=== PATIENT | male | born 1975 | race Two or more races ===

== ENCOUNTER 2017-05-21 15:26 | Emergency (ER) | payer OTHER ==
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
--- NOTE | 2017-05-21 17:39 | RAD ---
INDICATION: Rib pain. Evaluate for pulmonary contusion COMPARISON: CT abdomen and pelvis August 08, 2015 TECHNIQUE: Noncontrast source images were obtained from the thoracic inlet to the iliac crests. The lack of oral and intravenous contrast limits evaluation of bowel, assessment of adenopathy, and the solid viscera. Coronal and sagittal reconstructed images were acquired. CHEST FINDINGS: Neck/thyroid: The visualized neck to include the thyroid appear normal. Chest wall: There are no acute abnormalities of the bony thorax or chest wall. There is no supraclavicular, infraclavicular, or axillary lymphadenopathy. Lungs : There are no pulmonary parenchymal masses or infiltrates. The pulmonary interstitium appears normal. There are no endobronchial lesions. Cardiomediastinal structures: The heart is normal in size. There is no pericardial effusion. There is no evidence of aortic aneurysm or dissection. The pulmonary vessels appear normal. There is no mediastinal or hilar adenopathy. The esophagus appears normal. Pleura : There are no pleural-based masses or effusions. ABDOMINAL/PELVIC FINDINGS: Liver: The noncontrast CT appearance the liver is normal. Gallbladder: There are no calcified gallstones. There is no evidence of wall thickening or pericholecystic fluid. Spleen: Noncontrast CT appearance the spleen is normal. Pancreas: No focal pancreatic abnormalities on noncontrast evaluation. Adrenal glands: No adrenal mass. Kidneys: No nephrolithiasis, hydronephrosis, or renal masses on noncontrast imaging. Adenopathy: No gross adenopathy. Fluid collections: There is a midline localized fluid collection extending to near the iliac crests which may represent a significantly distended bladder. This is incompletely imaged. Vessels:The aorta and IVC appear normal GI tract: The visualized upper and lower GI tracts are normal on noncontrast imaging. Abdominal soft tissues: The extraperitoneal abdominal soft tissues appear normal.. Osseous structures: There are no acute osseous findings. IMPRESSION: POSSIBLE DISTENDED BLADDER. THIS SHOULD BE CLINICALLY ASSESSED TO DETERMINE IF THE PATIENT HAS THE URGE TO VOID AND IF A LARGE AMOUNT OF URINE IS OBTAINED POST VOIDING.
[2017-05-21 18:13] VITALS: BP 144/82
== END 2017-05-21 18:12 | disposition home or self-care (01) ==
LOC: ED 15:26
DX: S20.211A Contusion of right front wall of thorax, initial encounter (principal); Y09 Assault by unspecified means; Y92.9 Unspecified place or not applicable; F17.200 Nicotine dependence, unspecified, uncomplicated
CPT/HCPCS: 71250; 74150; 99282

== ENCOUNTER 2017-05-22 22:18 | Emergency (ER) | payer OTHER | END 2017-05-22 22:50 | disposition left against medical advice (07) | LOC: ED 22:18 | DX: R07.81 Pleurodynia (principal); Z53.21 Procedure and treatment not carried out due to patient leaving prior to being seen by health care provider ==

== ENCOUNTER 2017-11-14 23:07 | Emergency (ER) | payer OTHER ==
[2017-11-14] MEDS ORDERED: Hydrochlorothiazide TAB* 50 MG PO ONE (23:45)
[2017-11-14 23:52] LABS: ABS Basophils 0.1 10^3/ul (0-0.2); ABS Eosinophils 0.1 10^3/ul (0-0.6); ABS Lymphocytes 1.1 10^3/ul (1.0-4.8); ABS Monocytes 0.5 10^3/ul (0-0.8); ABS Neutrophils 5.2 10^3/ul (1.5-7.7); ABS Nucleated RBC 0 10^3/ul; Eosinophil % 1.3 % (0-6); Hematocrit 47 % (42-52); Hemoglobin 15.7 g/dl (14.0-18.0); Lymphocyte % 15.5 % (25-47); Mean Corpuscular HGB Conc 34 g/dl (31-36); Mean Corpuscular Hemoglobin 28 pg (27-31); Mean Corpuscular Volume 84 fL (80-94); Mean Platelet Volume 7.4 um3 (7.4-10.4); Nucleated Red Blood Cells % 0.4; Platelet Count 161 10^3/ul (150-450); Red Blood Count 5.58 10^6/ul (4.00-5.40); Red Cell Distribution Width 14 % (10.5-15); White Blood Count 6.9 10^3/ul (3.5-10.8)
[2017-11-15 00:07] LABS: EGFR Non-African American 137.8 (>60)
[2017-11-15] MEDS ORDERED: NS 0.9% 1000 ML* 1,000 ML IV ONE (00:26)
[2017-11-15] MEDS ORDERED: Iohexol 350* (CONTRAST) 500 ML MDV IV ONE (00:30)
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
[2017-11-15 01:44] VITALS: BP 0/0
--- NOTE | 2017-11-15 07:23 | RAD ---
HISTORY: left rib pain COMPARISONS: December 09, 2009 VIEWS: 3, Frontal view of the chest with frontal and oblique views of the left hemithorax FINDINGS: There is no displaced rib fracture or pneumothorax. The visualized lungs are clear. IMPRESSION: NO DISPLACED RIB FRACTURE OR PNEUMOTHORAX. R0
== END 2017-11-15 01:43 | disposition left against medical advice (07) ==
LOC: ED 23:07
DX: R07.89 Other chest pain (principal); R06.02 Shortness of breath; Z88.6 Allergy status to analgesic agent; F17.210 Nicotine dependence, cigarettes, uncomplicated
CPT/HCPCS: 36415; 80053; 83605; 84484; 85025; 85379; 93005; 99283

== ENCOUNTER → 2017-11-17 23:05 | Emergency (ER) | payer OTHER ==
[2017-11-17 23:11] VITALS: BP 116/84
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
== END | disposition left against medical advice (07) ==
LOC: ED 23:05
DX: R07.89 Other chest pain (principal); Z88.6 Allergy status to analgesic agent; F17.200 Nicotine dependence, unspecified, uncomplicated
CPT/HCPCS: 99283

== ENCOUNTER 2018-09-05 19:34 | Emergency (ER) | payer OTHER ==
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
[2018-09-05] MEDS ORDERED: Ibuprofen TAB* 800 MG PO ONE (21:03)
[2018-09-05 21:15] VITALS: BP 112/84
== END 2018-09-05 21:15 | disposition home or self-care (01) ==
LOC: ED 19:34
DX: S20.222A Contusion of left back wall of thorax, initial encounter (principal); X58.XXXA Exposure to other specified factors, initial encounter; Y92.9 Unspecified place or not applicable; Z88.6 Allergy status to analgesic agent; Z91.013 Allergy to seafood; Z91.018 Allergy to other foods; F17.200 Nicotine dependence, unspecified, uncomplicated
CPT/HCPCS: 99282

== ENCOUNTER 2018-09-14 22:49 | Emergency (ER) | payer OTHER ==
[2018-09-14 22:58] VITALS: BP 130/93
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
[2018-09-14] MEDS ORDERED: NS 0.9% 1000 ML** 1,000 ML IV ONE (23:23)
[2018-09-14] MEDS ORDERED: Ketorolac INJ* 30 MG/ML 1 ML VIAL IV PUSH ONE (23:25)
== END 2018-09-14 23:41 | disposition left against medical advice (07) ==
LOC: ED 22:49
DX: R07.81 Pleurodynia (principal); R07.89 Other chest pain; Z88.6 Allergy status to analgesic agent; Z91.013 Allergy to seafood; Z91.018 Allergy to other foods; F17.200 Nicotine dependence, unspecified, uncomplicated
CPT/HCPCS: 93005; 99283

== ENCOUNTER 2018-11-03 12:05 | Inpatient (IN) | payer MEDICAID, OTHER ==
[~2018-11-03 12:05] MED LIST: Thiamine IV 100 MG, Folic Acid IV* 1 MG, Multiple Vitamin IV ADULT* 10 ML in NS 0.9% 10... IV ONE
--- NOTE | 2018-11-03 12:55 | ED ---
Substance Abuse/Use - HPI Summary HPI Summary: 43 year old M brought to [facility] by corrections facility officer from [facility] complains of acute ETOH withdrawal since today. The patient rates the pain 0/10 in severity. Symptoms aggravated by nothing. Symptoms alleviated by nothing. Patient reports diaphoresis, hallucinations, confusion, and tachycardia. Patient states that this morning, while walking, he noticed that his hands started cramping. Patient additionally complains of shooting chest pain. Per nurse Kyung, nurse from corrections facility noticed that patient was having ETOH withdrawal while he was getting PO Ativan today. Patient states he was incarcerated 3 days ago. Reports hx GERD. Denies hx seizures. Denies previous ETOH wtihdrawal. Denies surgeries. Smokes cigarettes. Normally drinks 30 beers each day. Denies other recreational drugs. - History Of Current Complaint Chief Complaint: EDDetoxRequest Stated Complaint: ALCOHOL WITHDRAWAL PER POLICE Time Seen by Provider: 11/03/18 12:46 Hx Obtained From: Patient, Other: - nurse from corrections facility Timing Of Abuse: Recent Cessation For A Period Of - 3 days Severity Currently: None Aggravating Factor(s): Nothing Alleviating Factor(s): Nothing Associated Signs And Symptoms: Other: - diaphoresis, hallucinations, confusion, and tachycardia, chest pain - Allergies/Home Medications Allergies/Adverse Reactions: Allergies Allergy/AdvReac Type Severity Reaction Status Date / Time alprazolam [From Xanax] Allergy Hives Verified 11/03/18 12:18 aspirin Allergy Hives Verified 11/03/18 12:18 clams Allergy Hives Verified 11/03/18 12:18 fluoxetine [From Prozac] Allergy Hives Verified 11/03/18 12:18 turkey Allergy Hives Verified 11/03/18 12:18 PMH/Surg Hx/FS Hx/Imm Hx Endocrine/Hematology History: Denies: Hx Anticoagulant Therapy, Hx Blood Disorders, Hx Diabetes Cardiovascular History: Reports: Hx Hypercholesterolemia Denies: Hx Hypertension Respiratory History: Denies: Hx Asthma GI History: Reports: Hx Gastroesophageal Reflux Disease - Surgical History Surgery Procedure, Year, and Place: n/a - Immunization History Date of Tetanus Vaccine: unk Date of Influenza Vaccine: unk Infectious Disease History: No Infectious Disease History: Denies: Traveled Outside the [place] in Last 30 Days - Family History Known Family History: Negative: Cardiac Disease, Hypertension, Diabetes - Social History Alcohol Use: Daily Alcohol Amount: 2-3 bottles of 40 oz beer Hx Substance Use: No Substance Use Type: Reports: None Hx Tobacco Use: Yes Smoking Status (MU): Heavy Every Day Tobacco Smoker Review of Systems Positive: Skin Diaphoresis Positive: Chest Pain, Other - tachycardia Positive: Other - acute ETOH withdrawal, confusiopn, hallucinations All Other Systems Reviewed And Are Negative: Yes Physical Exam - Summary Physical Exam Summary: GENERAL: Patient is a well-developed and nourished M who is lying comfortable in the stretcher. Patient is not in any acute respiratory distress. Patient is tremulous HEAD AND FACE: Normocephalic EYES: PERRLA, EOMI x 2. EARS: Hearing grossly intact. MOUTH: Oropharynx within normal limits. NECK: Supple, trachea is midline, no adenopathy, no JVD, no carotid bruit. CHEST: Symmetric, no tenderness at palpation LUNGS: Clear to auscultation bilaterally. No wheezing or crackles. CVS: Mildly tachycardic, regular rhythm, S1 and S2 present, no murmurs or gallops appreciated. ABDOMEN: Soft, non-tender. Bowel sounds are normal. No abnormal abdominal pulsations. EXTREMITIES: Full ROM in all major joints, no edema, no cyanosis or clubbing. NEURO: Alert and oriented x 3. No acute neurological deficits. Speech is normal and follows commands. SKIN: Dry and warm Triage Information Reviewed: Yes Vital Signs On Initial Exam: Initial Vitals Temp Pulse Resp BP Pulse Ox 98.9 F 107 16 121/89 97 11/03/18 12:14 11/03/18 12:14 11/03/18 12:14 11/03/18 12:14 11/03/18 12:14 Vital Signs Reviewed: Yes Diagnostics - Vital Signs Vital Signs Temp Pulse Resp BP Pulse Ox 11/03/18 12:14 98.9 F 107 16 121/89 97 - Laboratory Result Diagrams: 11/04/18 04:42 11/04/18 04:42 Lab Statement: Any lab studies that have been ordered have been reviewed, and results considered in the medical decision making process. - EKG 1319 Cardiac Rate: NL - 98 BPM EKG Rhythm: Sinus Rhythm Summary of EKG Findings: Sinus rhythm at 98 BPM, normal intervals, normal axis. Re-Evaluation - Re-Evaluation First Eval Re-Evaluation Time: 13:59 Change: Worse Comment: patient is more tachycardic. HR in 150s Course/Dx - Course Course Of Treatment: 43 year old M brought to [facility] by corrections facility officer from [facility] complains of acute ETOH withdrawal since today. Patient reports diaphoresis, hallucinations, confusion, and tachycardia. Patient additionally complains of shooting chest pain. Per nurse Kyung, nurse from [facility] facility noticed that patient was having ETOH withdrawal. Patient states he was incarcerated 3 days ago. Denies previous ETOH wtihdrawal. Normally drinks 30 beers each day. PE findings: patient is tremulous and mildly tachycardic. Labs show no significant abnormalities except for Hgb 13.5 , Hct 41, absolute monos 1.0, sodium 134, chloride 100, creatinine 0.59, AST 83 , ALT 74. EKG shows sinus rhythm at 98 BPM, normal intervals, normal axis. In ED course, patient was given Ativan, Zofran, IV fluids. Case discussed with gas welding equipment mechanic, Dr. Alas, who agrees to admit patient. I discussed results with patient. The patient agrees with this plan. - Diagnoses Provider Diagnoses: Alcohol withdrawal - Physician Notifications Discussed Care Of Patient With: Eulalio Alas Time Discussed With Above Provider: 13:35 Instructed by Provider To: Other - Dr. Alas, gas welding equipment mechanic, will come to the ED to see the patient. - Critical Care Time Critical Care Time: 30-74 min Discharge - Sign-Out/Discharge Documenting (check all that apply): Patient Departure - Admit Patient Received Moderate/Deep Sedation with Procedure: No - Discharge Plan Condition: Fair Disposition: ADMITTED TO [facility] - Billing Disposition and Condition Condition: FAIR Disposition: Admitted to [facility] - Attestation Statements Document Initiated by Scribe: Yes Documenting Scribe: Lamar Lima Provider For Whom Scribe is Documenting (Include Credential): Veronica Garcia MD Scribe Attestation: Rani, Lamar Lima, scribed for Veronica Garcia MD on 11/05/18 at 0805. Scribe Documentation Reviewed: Yes Provider Attestation: The documentation as recorded by the scribeLamar accurately reflects the service I personally performed and the decisions made by me, Veronica Garcia MD Status of Scribe Document: Viewed
[2018-11-03] MEDS ORDERED: Thiamine INJ* 100 MG, Folic Acid IV* 1 MG, Multiple Vitamin IV ADULT* 10 ML in NS 0.9% ... IV ONE (12:57)
[2018-11-03] MEDS ORDERED: NS 0.9% 1000 ML** 1,000 ML IV ONE (12:58)
[2018-11-03] MEDS ORDERED: Al Hydrox/Mg Hydrox/Simet LIQ* 30 ML UDC PO ONE (12:58)
[2018-11-03] MEDS ORDERED: Lidocaine 2% VISCOUS* 15 ML UDC PO ONE (12:58)
[2018-11-03] MEDS ORDERED: Ondansetron INJ* 2 MG/ML VIAL IV ONE (12:59)
[2018-11-03] MEDS ORDERED: Lorazepam PYXIS KEY PRN ×3 (13:00→15:21)
[2018-11-03] MEDS ORDERED: LORazepam INJ* 2 MG/ML 1 ML VIAL IV PUSH ONE ×2 (13:00→13:38)
[2018-11-03] MEDS ORDERED: Lorazepam PYXIS KEY ONE (13:03)
[2018-11-03 13:46] LABS: ABS Neutrophils 5.8 10^3/ul (1.5-7.7); Eosinophil % 0.3 %; Hematocrit 41 % (42-52); Hemoglobin 13.5 g/dL (14.0-18.0); Lymphocyte % 12.6 %; Mean Corpuscular HGB Conc 33 g/dL (31-36); Mean Corpuscular Hemoglobin 29 pg (27-31); Mean Corpuscular Volume 89 fL (80-94); Mean Platelet Volume 7.4 fL (7.4-10.4); Nucleated Red Blood Cells % 0.2; Platelet Count 183 10^3/uL (150-450); Red Blood Count 4.64 10^6 /uL (4.18-5.48); Red Cell Distribution Width 14 % (10-15); White Blood Count 7.8 10^3/uL (3.5-10.8)
[2018-11-03] MEDS: Dexmedetomidine* 1,000 MCG in NS 0.9% 250 ML* 240 ML IV SCH ×3 (14:02→21:13)
--- NOTE | 2018-11-03 14:02 | HP ---
History of Present Illness - History of Present Illness Reason for Visit: Delirum Tremens History of Present Illness: 43 y/o male with no known significant PMH apart from chronic alcoholism incarcerated 3 days ago and today became tremulous, agitated and began to hallucinate. Brought to the ED at [facility] after being seen in clinic at [facility] and judged as exceeding their ability to handle this level of withdrawal with which I concur. He was evaluated by the ED and found to have no other obvious medical problem and started on benzodiazpines and Precedex. On my evaluation in ED he was receiving 2mg of ativan to total 4 at that time. Precedex order written by ED. He was agitated enough that it seemed reasonable to get control and hope to titrate precedex back off in the ICU environment as we trade for benzos. Pt is awake, agitated, verbal and aggressive in 4 point cuffs in custoday of DOC. - Past Medical History Psych: Addictions - ETOH 2-3 40 oz beers per day by one report, 30 twelve ounce beers daily by another - Past Surgical History Past Surgical History: Other - unknown - Past Family History Family History: Other - unknown - Past Social History Alcohol: Heavy Drugs: Other - unknown Lives: Other - unknown - Health Maintenance Health Maintenance: Other - unknown Review of Systems - Review of Systems Other: Unable to reliably obtain, actively hallucinating, spitting and thrashing about when seen in ED room 17 with nursing staff and DOC. - Medications/Allergies Allergies/Adverse Reactions: Allergies Allergy/AdvReac Type Severity Reaction Status Date / Time alprazolam [From Xanax] Allergy Hives Verified 11/03/18 12:18 aspirin Allergy Hives Verified 11/03/18 12:18 clams Allergy Hives Verified 11/03/18 12:18 fluoxetine [From Prozac] Allergy Hives Verified 11/03/18 12:18 turkey Allergy Hives Verified 11/03/18 12:18 Medications: Current Medications Sodium Chloride (Ns 0.9% 1000 Ml) 1,000 mls @ 1,000 mls/hr IV ED ONCE ONE Stop: 11/03/18 13:57 Last Admin: 11/03/18 13:20 Dose: 1,000 mls/hr Dexmedetomidine HCl 1,000 mcg/ (Sodium Chloride) 250 mls @ 0 mls/hr IV Q3H REJI ; Protocol Miscellaneous (Ativan Pyxis Butts) 1 ea N/A .ATIVAN IV BUTTS PRN PRN Reason: PYXIS BUTTS Exam - Exam Vital Signs: Vital Signs (72 hours) 11/03/18 11/03/18 11/03/18 12:14 13:06 13:47 Temperature 37.2 C Pulse Rate 107 Respiratory 16 16 16 Rate Blood Pressure 121/89 (mmHg) O2 Sat by Pulse 97 Oximetry General: Severe distress HEENT: PERRLA, EOMI, Mucous membr. moist/pink Lungs: Clear to auscultation Cardiovascular: Other - too active to appreciate reliably Abdomen: Other - too agitated to appropriately examine Extremities: No clubbing, No cyanosis, No edema Skin: No rashes, No breakdown Neurological: Strength at 5/5 X4 ext, Other Psych/Mental Status: Other - hallucinating, acutely agitated Assessment/Plan - Assessment/Plan Assessment: 43 y/o male with limited medical history presents with clinical scenario most consistent with DTs. No evidence of neurological focality. No evidence of infection. Certainly no meningismus. Vital signs stable and consistent with adrenergic storm while respiratory status is excellent and laboratory evaluations suggest only the current diagnosis. Plan: Delirium Tremens - benzodiazepines and precedex. Will add Neurolept if necessary. Chronic alcoholism - banana bag, hydration, cessation counseling when able
[2018-11-03 14:08] LABS: ALT 74 U/L (7-52); AST 83 U/L (13-39); Acetaminophen < 15 mcg/mL; Albumin 4.1 g/dL (3.2-5.2); Albumin/Globulin Ratio 1.1 (1-3); Alcohol < 10 mg/dL (<10); Alkaline Phosphatase 87 U/L (34-104); Anion Gap 8 mmol/L (2-11); BUN/Creatinine Ratio 11.9 (8-20); Blood Urea Nitrogen 7 mg/dL (6-24); CO2 Carbon Dioxide 26 mmol/L (22-32); Calcium 9.9 mg/dL (8.6-10.3); Chloride 100 mmol/L (101-111); EGFR African American 182.3 (>60); EGFR Non-African American 150.6 (>60); Globulin 3.7 g/dL (2-4); Glucose 92 mg/dL (70-100); Potassium 4.1 mmol/L (3.5-5.0); Salicylate < 2.50 mg/dL (<30); Sodium 134 mmol/L (135-145); Total Protein 7.8 g/dL (6.4-8.9)
[2018-11-03 14:09] LABS: Troponin I 0.01 ng/mL (<0.04)
[2018-11-03] MEDS ORDERED: Thiamine INJ* 100 MG/ML 2 ML VIAL IM ONE (14:19)
[2018-11-03] MEDS ORDERED: Al Hydrox/Mg Hydrox/Simet LIQ* 30 ML Q2P GAST DISTRESS PO PRN (16:00)
[2018-11-03] MEDS ORDERED: Thiamine IV 100 MG in NS 0.9% 50 ML Q24H IV ONE (17:00)
[2018-11-03] MEDS: Lactated Ringers 1000 ML Bag* 1,000 ML IV SCH (17:05)
[2018-11-03] MEDS: LORazepam IV 0-3 mg for WAM protocol IV PUSH SCH (21:25)
[2018-11-03 22:42] LABS: Urine Appearance Cloudy; Urine Bacteria Absent (Absent); Urine Bilirubin Negative (Negative); Urine Blood 1+ (Negative); Urine Color Yellow; Urine Glucose Negative (Negative); Urine Ketones Negative (Negative); Urine Nitrite Negative (Negative); Urine Protein Negative (Negative); Urine Red Blood Cell Trace(0-2/hpf) (Absent); Urine Specific Gravity 1.008 (1.010-1.030); Urine Squamous Epithelial Cell Present (Absent); Urine Urobilinogen Negative (Negative); Urine White Blood Cell Absent (Absent)
[2018-11-03 22:49] LABS: Urine Benzodiazepine Screen None Detected (None Detect); Urine Opiates Screen None Detected (None Detect)
[2018-11-04] MEDS: Dexmedetomidine* 1,000 MCG in NS 0.9% 250 ML* 240 ML IV SCH ×5 (01:04→10:35)
[2018-11-04 04:51] LABS: ABS Basophils 0.1 10^3/ul (0-0.2); ABS Eosinophils 0.1 10^3/ul (0-0.6); ABS Lymphocytes 1.4 10^3/ul (1.0-4.8); ABS Monocytes 0.7 10^3/ul (0-0.8); Eosinophil % 1.5 %; Hematocrit 40 % (42-52); Hemoglobin 13.5 g/dL (14.0-18.0); Mean Corpuscular HGB Conc 34 g/dL (31-36); Mean Corpuscular Hemoglobin 30 pg (27-31); Mean Corpuscular Volume 88 fL (80-94); Mean Platelet Volume 7.4 fL (7.4-10.4); Platelet Count 171 10^3/uL (150-450); Red Blood Count 4.53 10^6 /uL (4.18-5.48); Red Cell Distribution Width 14 % (10-15); White Blood Count 8.3 10^3/uL (3.5-10.8)
[2018-11-04 05:08] LABS: BUN/Creatinine Ratio 8.2 (8-20); Calcium 8.9 mg/dL (8.6-10.3); EGFR African American 225.8 (>60); EGFR Non-African American 186.7 (>60); Phosphorus 4.2 mg/dL (2.5-5.0); Potassium 3.5 mmol/L (3.5-5.0)
[2018-11-04] MEDS ORDERED: [UNRECOGNIZED DRUG - OTHER] IV ONE ×4 (08:00)
[2018-11-04] MEDS ORDERED: MVI IV ONE ×4 (08:00)
[2018-11-04] MEDS ORDERED: THIAMINE IV ONE ×4 (08:00)
[2018-11-04] MEDS ORDERED: FOLIC ACID IV ONE ×4 (08:00)
[2018-11-04] MEDS: Lactated Ringers 1000 ML Bag* 1,000 ML IV SCH (08:01)
--- NOTE | 2018-11-04 09:52 | PN ---
Date of Service: 11/04/18 Critical Care Services: Agitated delirium well controlled. Compliant on low dose precedex drip at this time plus ativan margret ROCK. Vital Signs: Temp Pulse Resp BP SpO2 FiO2 37.4 C 64 15 116/79 97 11/04/18 07:47 11/04/18 09:02 11/04/18 09:02 11/04/18 09:00 11/04/18 09:02 Physical Exam: Gen: Awake and appropriate. Hungry. No complaints. HEENT: NCAT, PERRLA Lungs: clear bilat Cardiac: S1S2 regular Abdomen: soft, NT, ND, +BS Extremities: no edema Neuro: grossly non-focal Fluid Balance (Past 24 Hours): I= O= Net Intake & Output 11/02/18 11/03/18 11/04/18 11/05/18 06:59 06:59 06:59 06:59 Intake Total 3472 Output Total 1825 500 Balance 1647 -500 Weight 58.1 kg Intake: IV Fluids 3373 lactated ringers 1363 Medicated IV 99 precedex 99 Oral 0 Output: Urine 0 [place] 1825 500 Other: Estimated Void Large # Voids 1 Labs: Laboratory Results - last 24 hr 11/03/18 11/03/18 11/03/18 13:37 13:37 13:37 WBC 7.8 RBC 4.64 Hgb 13.5 L Hct 41 L MCV 89 MCH 29 MCHC 33 RDW 14 Plt Count 183 MPV 7.4 Neut % (Auto) 74.4 Lymph % (Auto) 12.6 Tucker % (Auto) 12.3 Eos % (Auto) 0.3 Baso % (Auto) 0.4 Absolute Neuts (auto) 5.8 Absolute Lymphs (auto) 1.0 Absolute Monos (auto) 1.0 H Absolute Eos (auto) 0.0 Absolute Basos (auto) 0.0 Absolute Nucleated RBC 0.0 Nucleated RBC % 0.2 Sodium 134 L Potassium 4.1 Chloride 100 L Carbon Dioxide 26 Anion Gap 8 BUN 7 Creatinine 0.59 L Est GFR ( Amer) 182.3 Est GFR (Non-Af Amer) 150.6 BUN/Creatinine Ratio 11.9 Glucose 92 Lactic Acid 1.5 Calcium 9.9 Phosphorus Magnesium Total Bilirubin 0.60 AST 83 H ALT 74 H Alkaline Phosphatase 87 Troponin I 0.01 Total Protein 7.8 Albumin 4.1 Globulin 3.7 Albumin/Globulin Ratio 1.1 TSH 1.90 Urine Color Urine Appearance Urine pH Ur Specific [place] Urine Protein Urine Ketones Urine Blood Urine Nitrate Urine Bilirubin Urine Urobilinogen Ur Leukocyte Esterase Urine WBC (Auto) Urine RBC (Auto) Ur Squamous Epith Cells Urine Bacteria Urine Glucose Salicylates < 2.50 Urine Opiates Screen Acetaminophen < 15 Ur Barbiturates Screen Ur Phencyclidine Scrn Ur Amphetamines Screen U Benzodiazepines Scrn Urine Cocaine Screen U Cannabinoids Screen Serum Alcohol < 10 11/03/18 11/03/18 11/04/18 22:23 22:23 04:42 WBC RBC Hgb Hct MCV MCH MCHC RDW Plt Count MPV Neut % (Auto) Lymph % (Auto) Tucker % (Auto) Eos % (Auto) Baso % (Auto) Absolute Neuts (auto) Absolute Lymphs (auto) Absolute Monos (auto) Absolute Eos (auto) Absolute Basos (auto) Absolute Nucleated RBC Nucleated RBC % Sodium 140 Potassium 3.5 Chloride 109 Carbon Dioxide 24 Anion Gap 7 BUN 4 L Creatinine 0.49 L Est GFR ( Amer) 225.8 Est GFR (Non-Af Amer) 186.7 BUN/Creatinine Ratio 8.2 Glucose 108 H Lactic Acid Calcium 8.9 Phosphorus 4.2 Magnesium 2.0 Total Bilirubin AST ALT Alkaline Phosphatase Troponin I Total Protein Albumin Globulin Albumin/Globulin Ratio TSH Urine Color Yellow Urine Appearance Cloudy Urine pH 6.0 Ur Specific [place] 1.008 L Urine Protein Negative Urine Ketones Negative Urine Blood 1+ A Urine Nitrate Negative Urine Bilirubin Negative Urine Urobilinogen Negative Ur Leukocyte Esterase Negative Urine WBC (Auto) Absent Urine RBC (Auto) Trace(0-2/hpf) Ur Squamous Epith Cells Present A Urine Bacteria Absent Urine Glucose Negative Salicylates Urine Opiates Screen None detected Acetaminophen Ur Barbiturates Screen None detected Ur Phencyclidine Scrn None detected Ur Amphetamines Screen None detected U Benzodiazepines Scrn None detected Urine Cocaine Screen None detected U Cannabinoids Screen None detected Serum Alcohol 11/04/18 04:42 WBC 8.3 RBC 4.53 Hgb 13.5 L Hct 40 L MCV 88 MCH 30 MCHC 34 RDW 14 Plt Count 171 MPV 7.4 Neut % (Auto) 72.5 Lymph % (Auto) 17.0 Tucker % (Auto) 8.3 Eos % (Auto) 1.5 Baso % (Auto) 0.7 Absolute Neuts (auto) 6.0 Absolute Lymphs (auto) 1.4 Absolute Monos (auto) 0.7 Absolute Eos (auto) 0.1 Absolute Basos (auto) 0.1 Absolute Nucleated RBC 0.0 Nucleated RBC % 0.0 Sodium Potassium Chloride Carbon Dioxide Anion Gap BUN Creatinine Est GFR ( Amer) Est GFR (Non-Af Amer) BUN/Creatinine Ratio Glucose Lactic Acid Calcium Phosphorus Magnesium Total Bilirubin AST ALT Alkaline Phosphatase Troponin I Total Protein Albumin Globulin Albumin/Globulin Ratio TSH Urine Color Urine Appearance Urine pH Ur Specific [place] Urine Protein Urine Ketones Urine Blood Urine Nitrate Urine Bilirubin Urine Urobilinogen Ur Leukocyte Esterase Urine WBC (Auto) Urine RBC (Auto) Ur Squamous Epith Cells Urine Bacteria Urine Glucose Salicylates Urine Opiates Screen Acetaminophen Ur Barbiturates Screen Ur Phencyclidine Scrn Ur Amphetamines Screen U Benzodiazepines Scrn Urine Cocaine Screen U Cannabinoids Screen Serum Alcohol Studies: EKG 1400 8/8 sinus rhythm with repolarization abnormality seen laterally. Grossly non-ischemic. Nutrition: Transition to regular diet this AM, was NPO for his encephalopathy. Impression: Delirium tremens improving Plan: Delirium Tremens - agitation well controlled with precedex and ativan. Will wean precedex and try to transition to PO ativan only and transfer to floor later today. Alcoholism - cessation counseling, MD banana bag and transition to PO thiamine/ folate/MVI. Need to prove he can sustain a regimen that is possible to maintain in the correction. Lytes and counts excellent. Afebrile. No clinical signs of infection and encephalopathy vastly improved.
[2018-11-04] MEDS: LORazepam IV 0-3 mg for WAM protocol IV PUSH SCH ×3 (10:17→18:23)
[2018-11-04] MEDS: Acetaminophen TAB* 325 MG PO PRN (21:38)
--- NOTE | 2018-11-05 08:54 | PN ---
<Orin Barrett - Last Filed: 11/05/18 11:31> Subjective Date of Service: 11/05/18 Interval History: Patient is lucid this morning History reviewed. Patient's last drink was 10/31/18, and was caught due to theft after drinking. He was noticed to be tremulous, sweating, agitated, was treated by long-term doctor for 3 days before coming here. He felt improvement in terms of sweating and tremor overnight. Last lorazepam was given 18:23. Now CIWA score is 1 with tremor. He complained of right wrist pain, he can't remember any injury or fall, on bandage Objective Active Medications: Acetaminophen (Tylenol Tab*) 650 mg PO Q4H PRN PRN Reason: PAIN Last Admin: 11/04/18 21:38 Dose: 650 mg Al Hydrox/Mg Hydrox/Simethicone (Maalox Plus*) 30 ml PO Q2H PRN PRN Reason: PRN GASTRIC DISTRESS Folic Acid (Folvite Tab*) 1 mg PO DAILY [facility] Last Admin: 11/05/18 08:19 Dose: 1 mg Lorazepam (Ativan Inj*) 0 - 3 mg IV PUSH .PER [facility] PROTOCOL [facility]; Protocol Last Admin: 11/04/18 18:23 Dose: 1 mg Miscellaneous (Ativan Pyxis Ramirez) 1 ea N/A .PYXIS RAMIREZ PRN PRN Reason: PER PROTOCOL Last Admin: 11/03/18 21:13 Dose: 1 ea Multivitamins/Minerals (Theragran/Minerals Tab*) 1 tab PO DAILY [facility] Last Admin: 11/05/18 08:19 Dose: 1 tab Thiamine HCl (Vitamin B-1 Tab*) 100 mg PO DAILY [facility] Last Admin: 11/05/18 08:19 Dose: 100 mg Vital Signs - 8 hr 11/05/18 11/05/18 11/05/18 01:58 03:50 05:58 Temperature 97.6 F 98.8 F 98.8 F Pulse Rate 80 80 73 Respiratory 18 20 20 Rate Blood Pressure 116/74 105/61 100/63 (mmHg) O2 Sat by Pulse 99 99 100 Oximetry Oxygen Devices in Use Now: None Exam: Not in distress, speaking in full sentence tremors on bilateral hands noted, no flap Skin: no erythema or rash Heart: normal S1S2 Lung: clear Abdomen: soft, non tender MSK: right wrist tenderness on palptation, ROM full, no bruises or skin lesion seen. Result Diagrams: 11/04/18 04:42 11/04/18 04:42 Assess/Plan/Problems-Billing Assessment: 43 y/o M with chronic alcoholism, incarcerated last week after binge drinking, presented with alcohol withdrawal symptoms. He also had right wrist pain which we will evaluate with XR. - Patient Problems (1) Alcohol withdrawal delirium Current Visit: Yes Status: Acute Code(s): F10.231 - ALCOHOL DEPENDENCE WITH WITHDRAWAL DELIRIUM SNOMED Code(s): 3202244 Comment: Admitted due to delirium tremors, resolved after iv lorazepam use Symptoms resolved and CIWA score 1 for now (2) Wrist pain, right Current Visit: Yes Status: Acute Code(s): M25.531 - PAIN IN RIGHT WRIST SNOMED Code(s): 96457748 Comment: wrist XR done, ulnar plus variant which increases stress on TFCC, no fracture seen put on bandage, immobilization, ice pack (3) Liver function abnormality Current Visit: Yes Status: Acute Code(s): R94.5 - ABNORMAL RESULTS OF LIVER FUNCTION STUDIES SNOMED Code(s): 33977248 Comment: Elevated AST and ALT noted Hepatomegaly on physical exam US abdomen ordered Status and Disposition: Inpatient medicine, plan for discharge tomorrow if pt keeps well Attestation Documenting Resident: Orin Barrett Supervising Physician: Jen Monique Attestation: This service has been performed in part by a resident under the direction of a teaching physician.I, Jen Mnoique, performed the service, or was physically present during the critical, or ramirez portions of the service, furnished by the resident. I participated in the management of the patient. <Jen Monique - Last Filed: 11/05/18 14:34> Objective Active Medications: Acetaminophen (Tylenol Tab*) 650 mg PO Q4H PRN PRN Reason: PAIN Last Admin: 11/04/18 21:38 Dose: 650 mg Al Hydrox/Mg Hydrox/Simethicone (Maalox Plus*) 30 ml PO Q2H PRN PRN Reason: PRN GASTRIC DISTRESS Folic Acid (Folvite Tab*) 1 mg PO DAILY [facility] Last Admin: 11/05/18 08:19 Dose: 1 mg Lorazepam (Ativan Tab(*)) 1 mg PO Q6H PRN PRN Reason: ANXIETY Multivitamins/Minerals (Theragran/Minerals Tab*) 1 tab PO DAILY [facility] Last Admin: 11/05/18 08:19 Dose: 1 tab Thiamine HCl (Vitamin B-1 Tab*) 100 mg PO DAILY [facility] Last Admin: 11/05/18 08:19 Dose: 100 mg Vital Signs - 8 hr 11/05/18 11/05/18 11/05/18 07:15 08:00 11:15 Temperature 97.7 F 97.9 F Pulse Rate 81 74 Respiratory 14 14 18 Rate Blood Pressure 103/59 106/63 (mmHg) O2 Sat by Pulse 99 100 Oximetry 11/05/18 14:15 Temperature 98 F Pulse Rate 69 Respiratory 16 Rate Blood Pressure 105/62 (mmHg) O2 Sat by Pulse 100 Oximetry Result Diagrams: 11/04/18 04:42 11/04/18 04:42 Assess/Plan/Problems-Billing Assessment: Attestation Attending/Supervising Physician Comment: Mr. Urbano is now 5 days since his last drink and is doing quite well. He is a little tremulous on my exam, but his vitals are normal, he has a little anxiety and claims he has some tactile hallucinations, but no nausea. Will observe today and hopefully he will be able to be discharged tomorrow if no ativan needed today.
[2018-11-05] MEDS ORDERED: Folic Acid TAB* 1 MG PO SCH (09:00)
[2018-11-05] MEDS ORDERED: Thiamine TAB* 100 MG TAB PO SCH (09:00)
[2018-11-05] MEDS ORDERED: Multivitamins/Minerals TAB PO SCH (09:00)
[2018-11-05] MEDS ORDERED: LORazepam TAB(*) 1 MG PO PRN (11:22)
[2018-11-05] MEDS: Acetaminophen TAB* 325 MG PO PRN (23:44)
[2018-11-06 09:34] VITALS: BP 116/71
--- NOTE | 2018-11-06 10:52 | DS ---
CC: Dr. Castro * DISCHARGE SUMMARY: DATE OF ADMISSION: 11/03/18 DATE OF DISCHARGE: 11/06/18 PRINCIPAL DISCHARGE DIAGNOSES: 1. Delirium tremens. 2. Fatty liver. SECONDARY DISCHARGE DIAGNOSIS: Alcohol dependence. MEDICATIONS AT DISCHARGE: 1. Folic acid 1 mg daily. 2. Multivitamin 1 tab daily. 3. Thiamine 100 mg daily. PHYSICAL EXAM AT DISCHARGE: Temperature 98.2, heart rate 58, respiratory rate 16, pulse ox 100% on room, blood pressure 112/72. General: Alert, comfortable , well- appearing, nontoxic young man in no distress. HEENT: Pupils are 3 mm bilaterally, reactive to light. Sclerae are anicteric. Oral mucosa is moist. No pharyngeal exudate. Poor dentition is noted. Neck: No JVP or adenopathy. Chest: He is in a regular rate and rhythm with no murmurs. His lungs are clear bilaterally. Abdomen is soft, nontender, nondistended. Liver is palpable at the costal margin. No CVA tenderness. Extremities: No edema, rashes, or ulcers. Neurologic: He is oriented, appropriate, pleasant, calm, has no tremor or asterixes. BRIEF HOSPITAL COURSE: Mr. Urbano is a 43-year-old man, with a long history of alcohol dependency since he was 14 years old, who presented to the emergency department from the [facility]. He was incarcerated on 10/31/18. That morning, he had continued to drink heavily when he was taken to [facility]. Several days later, at [facility] on 11/03/18, he became tremulous, agitated, and began to hallucinate. He was transferred to the emergency department for further evaluation. Please see Dr. Alas's H and P for a complete description of the history of present illness. Dr. Alas admitted him to the ICU for Precedex drip and IV Ativan. He responded well to Precedex and Ativan, and by 11/04/18, the Precedex was weaned and he was transferred to p.o. Ativan. On 11/04/18, he was transferred to the floor. On 11/05/18, he required only 1 dose of oral Ativan, and by the morning of 11/06/18, it had been 24 hours and he required no further benzodiazepines. At the time of discharge, he has no evidence of withdrawal and wishes to remain sober when he is released from [facility]. He will need intensive counseling and lifestyle modification for this to be successful. Regarding his liver, given his mild hepatomegaly on exam and long history of alcohol abuse, a screening liver ultrasound was ordered and showed no cirrhosis but did show mild fatty liver and no masses. Regarding his wrist pain, he was complaining of severe wrist pain, and x-ray was obtained which showed no acute fracture but did show chronic ulnar plus variance which increases stress on the TFCC, which likely explains his wrist pain. This can be treated with Tylenol or ibuprofen. CONDITION AT THE TIME OF DISCHARGE: Stable. DISPOSITION: Mr. Urbano is being discharged back to the [facility]. [id number]/[facility] #: [id number] [place]
== END 2018-11-06 09:00 | DRG 775 ==
LOC: ED 12:05 → EEVIPCON 14:13 → ICU 14:13 → MED 11-04 14:07
PROVIDERS: ADMIT Internal Medicine Critical Care Medicine; ATTEND Internal Medicine
DX: F10.231 Alcohol dependence with withdrawal delirium (principal); Y90.0 Blood alcohol level of less than 20 mg/100 ml; M25.531 Pain in right wrist; K70.0 Alcoholic fatty liver; R94.5 Abnormal results of liver function studies; Z88.6 Allergy status to analgesic agent; Z91.013 Allergy to seafood; Z88.8 Allergy status to other drugs, medicaments and biological substances; Z91.018 Allergy to other foods
CPT/HCPCS: 36415; 76705; 80048; 80053; 80307; 80320; 80329; 81003; 81015; 83605; 83735; 84100; 84443; 84484; 85025; 87040; 87641; 93005; 99285; A9270-GY; G0480; J2060; J2405; J3411